=== PATIENT | female | born 1970 | race Caucasian/White ===

== ENCOUNTER 2023-10-13 10:57 | Observation (INO) | payer BC, OTHER ==
[2023-10-13] MEDS ORDERED: DOXYCYCLINE HYCLATE 100 MG CAPSULE PO ONE (12:11)
[2023-10-13] MEDS: SODIUM CHLORIDE 0.9% 500 ML INFUS.BAG IV ONE (12:14)
[2023-10-13] MEDS: DOXYCYCLINE HYCLATE 100 MG CAPSULE PO ONE (12:15)
[2023-10-13 12:23] LABS: HEMATOCRIT 35.7 % (32.4-45.2); HEMOGLOBIN 11.5 G/dL (10.7-15.3); MCH 28.6 pg (25.7-33.7); MCHC 32.2 g/dl (32.0-36.0); MEAN CELL VOLUME 88.7 fl (80-96); PLATELET COUNT 61.1 10^3/uL (134-434); RBC 4.02 10^6/uL (3.60-5.2); RDW 15.1 % (11.6-15.6); WHITE BLOOD COUNT 6.3 10^3/uL (4.0-10.8)
[2023-10-13 12:27] LABS: INR 1.19 (0.83-1.09); PROTHROMBIN TIME (PATIENT) 13.5 SEC (9.7-13.0)
[2023-10-13 12:30] LABS: ACTIVATED PTT 43.6 SECONDS (25.2-36.5)
[2023-10-13 12:48] LABS: ALBUMIN 3.2 g/dl (3.4-5.0); ALK PHOS 170 U/L (45-117); ANION GAP 8 mmol/L (4-13); BILIRUBIN,TOTAL 0.5 mg/dl (0.2-1); CALCIUM 8.7 mg/dl (8.5-10.1); CHLORIDE 101 mmol/L (98-107); CO2 32 mmol/L (21-32); CREATININE 0.8 mg/dl (0.6-1.3); GLUCOSE,RANDOM 112 mg/dl (74-106); POTASSIUM 3.8 mmol/L (3.5-5.1); SGOT/AST 74 U/L (15-37); SGPT/ALT 114 U/L (7-52); SODIUM 141 mmol/L (136-145); TOT PROT 6.1 g/dl (6.4-8.2)
[2023-10-13] MEDS ORDERED: ONDANSETRON 4 MG/2 ML VIAL ONE (12:53)
[2023-10-13] MEDS: ONDANSETRON 4 MG/2 ML VIAL IVPUSH ONE (12:55)
[2023-10-13 13:07] LABS: ANISOCYTOSIS 1+; PLATELET ESTIMATE MOD DECREASED
[2023-10-13 13:09] LABS: SMUDGE CELLS FEW
[2023-10-13] MEDS ORDERED: cefTRIAXone SODIUM 1 GM VIAL ONE (13:55)
[2023-10-13 13:59] LABS: LACTIC ACID 2.4 mmol/L (0.4-2.0)
[2023-10-13] MEDS: CEFTRIAXONE 1,000 MG in DEXTROSE 5%-WATER - 50 ML IVPB ONE (14:26)
[2023-10-13 15:12] VITALS: BMI 25.4
[2023-10-13] MEDS: SODIUM CHLORIDE 1,000 ML IV SCH (15:49)
[2023-10-13] MEDS: oxyCODONE HCL 5 MG TABLET PO PRN (18:21)
[2023-10-14] MEDS: DOXYCYCLINE INJECTION 100 MG in DEXTROSE 5%-WATER 100 ML IVPB SCH (00:25)
[2023-10-14 08:42] LABS: INR 1.13 (0.83-1.09); PROTHROMBIN TIME (PATIENT) 12.8 SEC (9.7-13.0)
[2023-10-14 09:09] LABS: ALBUMIN 2.6 g/dl (3.4-5.0); BILIRUBIN,TOTAL 0.3 mg/dl (0.2-1); CALCIUM 7.6 mg/dl (8.5-10.1); CREATININE 0.7 mg/dl (0.6-1.3); PHOSPHOROUS 3.8 (2.5-4.9); POTASSIUM 3.9 mmol/L (3.5-5.1)
[2023-10-14] MEDS: ROSUVASTATIN CA 5 MG TABLET PO SCH (09:34)
[2023-10-14] MEDS: CEFTRIAXONE 1 GM in DEXTROSE 5%-WATER - 50 ML IVPB SCH (09:34)
[2023-10-14 09:44] LABS: HEMATOCRIT 30.1 % (32.4-45.2); HEMOGLOBIN 9.9 GM/dL (10.7-15.3); MCH 28.4 pg (25.7-33.7); MCHC 32.8 g/dl (32.0-36.0); MEAN CELL VOLUME 86.5 fl (80-96); MEAN PLT VOLUME 8.4 fl (7.5-11.1); PLATELET COUNT 81 10^3/uL (134-434); RBC 3.48 M/mm3 (3.60-5.2); RDW 14.5 % (11.6-15.6); WHITE BLOOD COUNT 6.2 K/mm3 (4.0-10.0)
[2023-10-14] MEDS ORDERED: metoPROLOL SUCCINATE 25 MG TAB.SR.24H (FP) PO SCH (10:00)
[2023-10-14] MEDS: metoPROLOL SUCCINATE 25 MG TAB.SR.24H (FP) PO SCH (10:05)
[2023-10-14 10:13] VITALS: RESP 18
[2023-10-14 10:19] LABS: ANISOCYTOSIS 0; MACROCYTOSIS 0
[2023-10-14] MEDS ORDERED: guaiFENesin 200 MG/10 ML 10 ML UNIT-DOSE CUPS PO PRN (12:37)
[2023-10-15] MEDS: oxyCODONE HCL 5 MG TABLET PO PRN (01:25)
[2023-10-15 06:31] VITALS: PULSE 83
[2023-10-15 08:51] LABS: HEMATOCRIT 35.4 % (32.4-45.2); MCH 27.7 pg (25.7-33.7); MEAN CELL VOLUME 89.5 fl (80-96); MEAN PLT VOLUME 8.7 fl (7.5-11.1); PLATELET COUNT 119.9 10^3/uL (134-434); RBC 3.95 10^6/uL (3.60-5.2); RDW 15.7 % (11.6-15.6); WHITE BLOOD COUNT 7.4 10^3/uL (4.0-10.8)
[2023-10-15 09:29] LABS: BILIRUBIN,TOTAL 0.3 mg/dl (0.2-1); CALCIUM 8.3 mg/dl (8.5-10.1); CREATININE 0.6 mg/dl (0.6-1.3); TOT PROT 5.6 g/dl (6.4-8.2)
[2023-10-15 09:54] VITALS: BP 113/69; TEMP 98.7
== END 2023-10-15 13:14 | disposition home or self-care (01) ==
LOC: FER 10:57 → FM/S 13:44
PROVIDERS: ADMIT Internal Medicine; ATTEND Internal Medicine
PROC: 3E03329 Introduction of Other Anti-infective into Peripheral Vein, Percutaneous Approach (ICD-10-PCS; principal; 2023-10-13)
PROC: 3E033GC Introduction of Other Therapeutic Substance into Peripheral Vein, Percutaneous Approach (ICD-10-PCS; 2023-10-13)
PROC: 3E0337Z Introduction of Electrolytic and Water Balance Substance into Peripheral Vein, Percutaneous Approach (ICD-10-PCS; 2023-10-13)
DX: D69.6 Thrombocytopenia, unspecified (principal); R91.8 Other nonspecific abnormal finding of lung field; C34.90 Malignant neoplasm of unspecified part of unspecified bronchus or lung; A69.20 Lyme disease, unspecified; A79.82 Anaplasmosis [A. phagocytophilum]; I10 Essential (primary) hypertension; E78.5 Hyperlipidemia, unspecified; Z85.038 Personal history of other malignant neoplasm of large intestine; R74.01 Elevation of levels of liver transaminase levels
CPT/HCPCS: 0241U-QW; 36415; 71045-TC-FY; 71046-TC-FY; 80053; 81003; 81015; 82930; 83605; 83735; 84100; 85025; 85027; 85384; 85610; 85730; 86850; 86900; 86901; 87040; 87086; 87207; 87798; 93005; 99285-25; G0378